=== PATIENT | male | born 1940 | race Caucasian/White ===

== ENCOUNTER → 2017-12-15 11:31 | Outpatient (CLI) | payer MEDICARE ==
[2012-09-18 07:48] VITALS: BMI 24.4
== END | disposition home or self-care (01) ==
LOC: D.RAD 11:31
DX: R05 Cough (principal)

== ENCOUNTER → 2019-06-20 08:11 | Outpatient (CLI) | payer MEDICARE ==
[2012-09-18 07:48] VITALS: BMI 24.4
== END | disposition home or self-care (01) ==
LOC: D.MRI 08:11
PROVIDERS: ATTEND Family Medicine
DX: R93.2 Abnormal findings on diagnostic imaging of liver and biliary tract (principal)

== ENCOUNTER → 2019-09-16 12:25 | Outpatient (CLI) | payer MEDICARE ==
[2012-09-18 07:48] VITALS: BMI 24.4
== END | disposition home or self-care (01) ==
LOC: D.MRI 12:25
PROVIDERS: ATTEND Family Medicine
DX: M54.16 Radiculopathy, lumbar region (principal)